=== PATIENT | female | born 1955 | race African-American/Black ===

== ENCOUNTER 2021-06-12 09:11 | Observation (INO) | payer OTHER ==
[2021-06-12 10:10] LABS: BASO % 1.7 % (0-2.0); EOS % 2.4 % (0-4.5); HEMATOCRIT 38.3 % (32.4-45.2); HEMOGLOBIN 12.8 GM/dL (10.7-15.3); MCHC 33.3 g/dl (32.0-36.0); MONO % 13.3 % (3.8-10.2); NEUT % 53.6 % (42.8-82.8); PLATELET COUNT 170 10^3/uL (134-434); RBC 4.41 M/mm3 (3.60-5.2); RDW 12.5 % (11.6-15.6); WHITE BLOOD COUNT 2.6 K/mm3 (4.0-10.0)
[2021-06-12 10:14] VITALS: BMI 40.6
[2021-06-12 10:17] LABS: INR 1.07 (0.83-1.09); PROTHROMBIN TIME (PATIENT) 12.3 SEC (9.7-13.0)
[2021-06-12 10:20] LABS: ACTIVATED PTT 32.9 SECONDS (25.2-36.5)
[2021-06-12 10:42] LABS: ALBUMIN 3.9 g/dl (3.4-5.0); BLOOD UREA NITROGEN 8.7 mg/dL (7-18); CALCIUM 9.7 mg/dL (8.5-10.1); MAGNESIUM 2.2 mg/dL (1.8-2.4)
[2021-06-12 10:45] LABS: CREATININE 0.7 mg/dL (0.55-1.3)
[2021-06-12] MEDS ORDERED: ACETAMINOPHEN 1000 MG/100 ML BAG IVPB ONE (10:45)
[2021-06-12 10:47] LABS: BILIRUBIN,TOTAL 0.6 mg/dL (0.2-1); TOT PROT 7.3 g/dl (6.4-8.2)
[2021-06-12] MEDS ORDERED: ACETAMINOPHEN INJECTION 100 ML IVPB ONE (11:20)
[2021-06-12] MEDS ORDERED: ACETAMINOPHEN 325 MG TABLET (FP) ONE (18:22)
[2021-06-12] MEDS: ACETAMINOPHEN 325 MG TABLET (FP) PO PRN (18:25)
[2021-06-13] MEDS: ACETAMINOPHEN 325 MG TABLET (FP) PO PRN ×2 (05:00→13:14)
[2021-06-13] MEDS ORDERED: ENOXAPARIN NA (PORCINE) 40 MG/0.4 ML DISP.SYRIN SQ SCH (10:00)
[2021-06-13] MEDS: amLODIPine BESYLATE 2.5 MG TABLET (FP) PO SCH (10:10)
[2021-06-13] MEDS: ASPIRIN 81 MG CHEWABLE TABLETS PO SCH (10:10)
[2021-06-13] MEDS: MONTELUKAST NA 10 MG TABLET PO SCH (10:10)
[2021-06-13] MEDS: PANTOPRAZOLE 40 MG TABLET PO SCH (10:10)
[2021-06-13] MEDS ORDERED: ALBUTEROL SO4 HFA INHALER IH PRN (15:44)
[2021-06-13] MEDS: ENOXAPARIN NA (PORCINE) 40 MG/0.4 ML DISP.SYRIN SQ SCH (21:37)
[2021-06-14 07:13] LABS: BASO % 0.8 % (0-2.0); HEMATOCRIT 35.6 % (32.4-45.2); HEMOGLOBIN 11.7 GM/dL (10.7-15.3); MCHC 32.8 g/dl (32.0-36.0); MEAN CELL VOLUME 88.5 fl (80-96); MEAN PLT VOLUME 9.4 fl (7.5-11.1); MONO % 10.8 % (3.8-10.2); NEUT % 31.4 % (42.8-82.8); PLATELET COUNT 178 10^3/uL (134-434); RBC 4.03 M/mm3 (3.60-5.2); RDW 12.3 % (11.6-15.6); WHITE BLOOD COUNT 3.6 K/mm3 (4.0-10.0)
[2021-06-14 07:34] LABS: CALCIUM 8.9 mg/dL (8.5-10.1)
[2021-06-14 07:35] LABS: BLOOD UREA NITROGEN 11.7 mg/dL (7-18)
[2021-06-14 07:38] LABS: CREATININE 0.8 mg/dL (0.55-1.3)
[2021-06-14] MEDS ORDERED: REGADENOSON 0.4 MG/5 ML PRE-FILLED SYRINGE IVPUSH ONE ×2 (10:21→11:15)
[2021-06-14] MEDS: ENOXAPARIN NA (PORCINE) 40 MG/0.4 ML DISP.SYRIN SQ SCH ×2 (10:30→12:33)
[2021-06-14] MEDS: ASPIRIN 81 MG CHEWABLE TABLETS PO SCH ×2 (10:30→12:33)
[2021-06-14] MEDS: PANTOPRAZOLE 40 MG TABLET PO SCH ×2 (10:31→12:34)
[2021-06-14] MEDS: MONTELUKAST NA 10 MG TABLET PO SCH ×2 (10:31→12:34)
[2021-06-14] MEDS: amLODIPine BESYLATE 2.5 MG TABLET (FP) PO SCH ×2 (10:31→12:34)
[2021-06-14 16:08] VITALS: BP 113/73; PULSE 60; TEMP 97.5
== END 2021-06-14 18:02 | disposition home or self-care (01) ==
LOC: JER 09:11 → JERBED 11:14 → J4W 19:43
PROVIDERS: ADMIT Internal Medicine; ATTEND Internal Medicine
PROC: 3E033NZ Introduction of Analgesics, Hypnotics, Sedatives into Peripheral Vein, Percutaneous Approach (ICD-10-PCS; principal; 2021-06-12)
PROC: 3E023GC Introduction of Other Therapeutic Substance into Muscle, Percutaneous Approach (ICD-10-PCS; 2021-06-12)
PROC: 3E033GC Introduction of Other Therapeutic Substance into Peripheral Vein, Percutaneous Approach (ICD-10-PCS; 2021-06-12)
DX: R07.9 Chest pain, unspecified (principal); J45.909 Unspecified asthma, uncomplicated; R01.1 Cardiac murmur, unspecified; R00.1 Bradycardia, unspecified; Z88.0 Allergy status to penicillin; Z88.8 Allergy status to other drugs, medicaments and biological substances
CPT/HCPCS: 36415; 71045-TC-FY; 78452-TC; 80048; 80053; 80061; 83735; 84443; 84484; 85025; 85610; 85730; 93005; 93010; 93017; 96372; 96374; 96375; 99285-25; A9502; C9803-CS; G0378; J2785; U0003; U0005

== ENCOUNTER 2021-10-16 20:11 | Emergency (ER) | payer OTHER ==
[2021-10-16 20:32] VITALS: BMI 44.1
[2021-10-16] MEDS ORDERED: ACETAMINOPHEN 325 MG TABLET (FP) PO ONE (20:57)
[2021-10-16] MEDS ORDERED: ACETAMINOPHEN 325 MG TABLET (FP) ONE (21:13)
[2021-10-16 21:36] LABS: HEMATOCRIT 37.8 % (32.4-45.2); HEMOGLOBIN 12.3 GM/dL (10.7-15.3); MCH 28.3 pg (25.7-33.7); MCHC 32.5 g/dl (32.0-36.0); MEAN CELL VOLUME 87.1 fl (80-96); MEAN PLT VOLUME 9.7 fl (7.5-11.1); PLATELET COUNT 222 10^3/uL (134-434); RBC 4.35 M/mm3 (3.60-5.2); RDW 12.7 % (11.6-15.6); WHITE BLOOD COUNT 5.1 K/mm3 (4.0-10.0)
[2021-10-16 21:59] LABS: BLOOD UREA NITROGEN 12.8 mg/dL (7-18); CALCIUM 9.4 mg/dL (8.5-10.1); MAGNESIUM 2.2 mg/dL (1.8-2.4)
[2021-10-16 22:00] LABS: ALBUMIN 3.7 g/dl (3.4-5.0)
[2021-10-16 22:03] LABS: CREATININE 0.7 mg/dL (0.55-1.3)
[2021-10-16 22:04] LABS: BILIRUBIN,TOTAL 0.5 mg/dL (0.2-1); TOT PROT 7.5 g/dl (6.4-8.2)
[2021-10-16] MEDS ORDERED: ALBUTEROL SO4 HFA INHALER IH ONE ×2 (23:09→23:13)
[2021-10-16] MEDS ORDERED: KETOROLAC TROMETHAMINE 15 MG/ML VIAL IVPUSH ONE (23:09)
[2021-10-16] MEDS ORDERED: KETOROLAC TROMETHAMINE 30 MG/1 ML VIAL ONE (23:13)
[2021-10-16] MEDS ORDERED: SODIUM CHLORIDE 0.9% 500 ML INFUS.BAG IV ONE (23:38)
[2021-10-17 01:46] VITALS: BP 118/76; PULSE 76; RESP 18; TEMP 98.1
== END 2021-10-17 01:47 | disposition home or self-care (01) ==
LOC: JER 20:11
PROC: 3E033GC Introduction of Other Therapeutic Substance into Peripheral Vein, Percutaneous Approach (ICD-10-PCS; principal; 2021-10-16)
PROC: 3E0F7GC Introduction of Other Therapeutic Substance into Respiratory Tract, Via Natural or Artificial Opening (ICD-10-PCS; 2021-10-16)
DX: U07.1 COVID-19 (principal); R07.9 Chest pain, unspecified
CPT/HCPCS: 36415; 71046-TC-FY; 80053; 83735; 84484; 85027; 93005; 93010; 94640; 96374; 99285-25; C9803-CS; U0003; U0005

== ENCOUNTER 2022-06-14 16:13 | Emergency (ER) | payer OTHER ==
[2022-06-14 16:22] VITALS: RESP 18; TEMP 98.2; BMI 42.9
[2022-06-14] MEDS ORDERED: methylPREDNISolone NA SUCC 125 MG/2 ML VIAL IVPB ONE (16:53)
[2022-06-14] MEDS ORDERED: MAGNESIUM SULF 50% (8.12 MEQ/2 ML-1 GM VIAL) IVPB ONE (16:53)
[2022-06-14] MEDS ORDERED: ALBUTEROL SO4 2.5/IPRATROPIUM 0.5 INH SOL 3 ML VIAL.NEB. NEB ONE ×3 (16:53→18:40)
[2022-06-14] MEDS ORDERED: ACETAMINOPHEN 1000 MG/100 ML BAG IVPB ONE (16:56)
[2022-06-14] MEDS ORDERED: ACETAMINOPHEN INJECTION 100 ML IVPB ONE (17:00)
[2022-06-14] MEDS ORDERED: methylPREDNISolone NA SUCC 125 MG/2 ML VIAL ONE (17:00)
[2022-06-14] MEDS ORDERED: MAGNESIUM SULFATE IN WATER 2 GM/50 ML IVPB IVPB ONE (17:01)
[2022-06-14 17:56] LABS: BASO % 0.8 % (0-2.0); EOS % 1.4 % (0-4.5); HEMATOCRIT 40.2 % (32.4-45.2); HEMOGLOBIN 13.3 GM/dL (10.7-15.3); MCH 28.6 pg (25.7-33.7); MCHC 33.1 g/dl (32.0-36.0); MEAN CELL VOLUME 86.5 fl (80-96); MEAN PLT VOLUME 10.1 fl (7.5-11.1); MONO % 12.6 % (3.8-10.2); NEUT % 49.2 % (42.8-82.8); PLATELET COUNT 212 10^3/uL (134-434); RBC 4.64 M/mm3 (3.60-5.2); WHITE BLOOD COUNT 4.7 K/mm3 (4.0-10.0)
[2022-06-14 18:26] LABS: BLOOD UREA NITROGEN 17.2 mg/dL (7-18); MAGNESIUM 2.2 mg/dL (1.8-2.4)
[2022-06-14 18:29] LABS: CREATININE 0.9 mg/dL (0.55-1.3); PHOSPHOROUS 4.2 mg/dL (2.5-4.9)
[2022-06-14 18:30] LABS: BILIRUBIN,TOTAL 0.8 mg/dL (0.2-1); TOT PROT 7.9 g/dl (6.4-8.2)
[2022-06-14 18:32] VITALS: BP 104/65; PULSE 76
== END 2022-06-14 20:28 | disposition home or self-care (01) ==
LOC: JER 16:13
PROC: 3E033GC Introduction of Other Therapeutic Substance into Peripheral Vein, Percutaneous Approach (ICD-10-PCS; principal; 2022-06-14)
PROC: 3E0F7GC Introduction of Other Therapeutic Substance into Respiratory Tract, Via Natural or Artificial Opening (ICD-10-PCS; 2022-06-14)
DX: J45.909 Unspecified asthma, uncomplicated (principal)
CPT/HCPCS: 0241U-QW; 36415; 71045-TC-FY; 80053; 83735; 84100; 84484; 85025; 93005; 93010; 94640; 96374; 96375; 99285-25

== ENCOUNTER 2022-08-20 11:50 | Observation (INO) | payer OTHER ==
[2022-08-20] MEDS ORDERED: methylPREDNISolone NA SUCC 125 MG/2 ML VIAL IVPUSH ONE (12:10)
[2022-08-20] MEDS ORDERED: ALBUTEROL SO4 2.5/IPRATROPIUM 0.5 INH SOL 3 ML VIAL.NEB. NEB ONE (12:23)
[2022-08-20] MEDS ORDERED: methylPREDNISolone NA SUCC 125 MG/2 ML VIAL ONE (12:23)
[2022-08-20] MEDS: ALBUTEROL SO4 2.5/IPRATROPIUM 0.5 INH SOL 3 ML VIAL.NEB. NEB SCH ×5 (12:31→21:33)
[2022-08-20 12:49] LABS: BASO % 0.6 % (0-2.0); EOS % 4.2 % (0-4.5); HEMATOCRIT 37.7 % (32.4-45.2); HEMOGLOBIN 12.4 GM/dL (10.7-15.3); LYMPH % 37.2 % (8-40); MCH 28.7 pg (25.7-33.7); MCHC 32.9 g/dl (32.0-36.0); MEAN CELL VOLUME 87.2 fl (80-96); MEAN PLT VOLUME 8.8 fl (7.5-11.1); MONO % 12.9 % (3.8-10.2); NEUT % 45.1 % (42.8-82.8); PLATELET COUNT 186 10^3/uL (134-434); RBC 4.33 M/mm3 (3.60-5.2); RDW 12.6 % (11.6-15.6); WHITE BLOOD COUNT 2.8 K/mm3 (4.0-10.0)
[2022-08-20 13:06] LABS: POTASSIUM 4.3 mmol/L (3.5-5.1)
[2022-08-20 13:08] LABS: CALCIUM 9.3 mg/dL (8.5-10.1)
[2022-08-20 13:09] LABS: ALBUMIN 3.5 g/dl (3.4-5.0); BLOOD UREA NITROGEN 11.2 mg/dL (7-18)
[2022-08-20] MEDS ORDERED: MAGNESIUM SULF 50% (8.12 MEQ/2 ML-1 GM VIAL) IVPB ONE (13:10)
[2022-08-20 13:12] LABS: CREATININE 0.8 mg/dL (0.55-1.3)
[2022-08-20] MEDS ORDERED: MAGNESIUM SULFATE IN WATER 2 GM/50 ML IVPB IVPB ONE (13:12)
[2022-08-20 13:14] LABS: BILIRUBIN,TOTAL 0.6 mg/dL (0.2-1); TOT PROT 6.6 g/dl (6.4-8.2)
[2022-08-20] MEDS ORDERED: ACETAMINOPHEN 1000 MG/100 ML BAG IVPB ONE (15:35)
[2022-08-20] MEDS ORDERED: ACETAMINOPHEN INJECTION 100 ML IVPB ONE (15:36)
[2022-08-20] MEDS ORDERED: ACETAMINOPHEN 325 MG TABLET (FP) PO PRN (15:51)
[2022-08-20] MEDS ORDERED: ALBUTEROL SO4 2.5/IPRATROPIUM 0.5 INH SOL 3 ML VIAL.NEB. NEB PRN (15:51)
[2022-08-20 16:56] VITALS: BMI 42.3
[2022-08-20] MEDS: methylPREDNISolone NA SUCC 40 MG/1 ML VIAL IVPUSH SCH (17:42)
[2022-08-20] MEDS: IBUPROFEN 800 MG/8 ML IJ IVPB PRN (18:01)
[2022-08-20] MEDS: MONTELUKAST NA 10 MG TABLET PO SCH (21:41)
[2022-08-21] MEDS ORDERED: BENZOCAINE/MENTH/CETYLPYRD CL 1 EACH LOZENGE MM PRN (00:47)
[2022-08-21] MEDS ORDERED: guaiFENesin 200 MG/10 ML 10 ML UNIT-DOSE CUPS PO ONE (00:47)
[2022-08-21] MEDS ORDERED: ACETYLCYSTEINE 20% 200MG/ML 30 ML VIAL *FOR ORAL / INH USE ONLY NEB ONE (00:48)
[2022-08-21] MEDS: methylPREDNISolone NA SUCC 40 MG/1 ML VIAL IVPUSH SCH ×3 (01:07→18:37)
[2022-08-21] MEDS: IBUPROFEN 800 MG/8 ML IJ IVPB PRN (06:32)
[2022-08-21] MEDS: ALBUTEROL SO4 2.5/IPRATROPIUM 0.5 INH SOL 3 ML VIAL.NEB. NEB SCH ×4 (07:40→20:32)
[2022-08-21] MEDS: amLODIPine BESYLATE 5 MG TABLET (FP) PO SCH (10:29)
[2022-08-21] MEDS: PANTOPRAZOLE 40 MG TABLET PO SCH (10:29)
[2022-08-21] MEDS: ENOXAPARIN NA (PORCINE) 40 MG/0.4 ML DISP.SYRIN SQ SCH (10:30)
[2022-08-21 15:04] VITALS: RESP 18
[2022-08-21] MEDS: MONTELUKAST NA 10 MG TABLET PO SCH (21:22)
[2022-08-22] MEDS: methylPREDNISolone NA SUCC 40 MG/1 ML VIAL IVPUSH SCH ×2 (01:38→10:29)
[2022-08-22] MEDS: ALBUTEROL SO4 2.5/IPRATROPIUM 0.5 INH SOL 3 ML VIAL.NEB. NEB SCH ×3 (08:35→16:31)
[2022-08-22] MEDS: ENOXAPARIN NA (PORCINE) 40 MG/0.4 ML DISP.SYRIN SQ SCH (10:29)
[2022-08-22] MEDS: amLODIPine BESYLATE 5 MG TABLET (FP) PO SCH (10:29)
[2022-08-22] MEDS: PANTOPRAZOLE 40 MG TABLET PO SCH (10:29)
[2022-08-22 12:59] VITALS: BP 147/72; PULSE 72; TEMP 98.7
[2022-08-22] MEDS ORDERED: TIOTROPIUM BROMIDE 2.5 MCG (SPIRIVA) RESPIMAT INHALER IH SCH (14:00)
[2022-08-22] MEDS ORDERED: BUDESONIDE/FORMETEROL FUMARATE 160/4.5 mcg INHALER IH SCH (14:00)
== END 2022-08-22 16:21 | disposition home or self-care (01) ==
LOC: JER 11:50 → JERBED 14:38 → J5S 16:04
PROVIDERS: ADMIT Internal Medicine; ATTEND Student in an Organized Health Care Education/Training Program
PROC: 3E0333Z Introduction of Anti-inflammatory into Peripheral Vein, Percutaneous Approach (ICD-10-PCS; principal; 2022-08-20)
PROC: 3E033NZ Introduction of Analgesics, Hypnotics, Sedatives into Peripheral Vein, Percutaneous Approach (ICD-10-PCS; 2022-08-20)
PROC: 3E033GC Introduction of Other Therapeutic Substance into Peripheral Vein, Percutaneous Approach (ICD-10-PCS; 2022-08-20)
PROC: 3E013GC Introduction of Other Therapeutic Substance into Subcutaneous Tissue, Percutaneous Approach (ICD-10-PCS; 2022-08-20)
PROC: 3E0F7SF Introduction of Other Gas into Respiratory Tract, Via Natural or Artificial Opening (ICD-10-PCS; 2022-08-20)
DX: J45.901 Unspecified asthma with (acute) exacerbation (principal); I10 Essential (primary) hypertension; R07.89 Other chest pain; Z88.0 Allergy status to penicillin; Z88.1 Allergy status to other antibiotic agents; E78.5 Hyperlipidemia, unspecified; F41.0 Panic disorder [episodic paroxysmal anxiety]; E66.9 Obesity, unspecified; Z68.41 Body mass index [BMI] 40.0-44.9, adult; R06.83 Snoring
CPT/HCPCS: 0241U-QW; 36415; 71045-TC-FY; 71275-TC; 80053; 83735; 84484; 85025; 93005; 93010; 93306-TC; 94640; 96372; 96374; 96375; 96376; 99291; G0378

== ENCOUNTER 2023-04-20 14:42 | Observation (INO) | payer OTHER ==
[2023-04-20] MEDS ORDERED: ALBUTEROL SO4 2.5/IPRATROPIUM 0.5 INH SOL 3 ML VIAL.NEB. NEB ONE ×2 (16:16→21:13)
[2023-04-20] MEDS ORDERED: methylPREDNISolone NA SUCC 125 MG/2 ML VIAL ONE ×2 (16:17→21:23)
[2023-04-20] MEDS: methylPREDNISolone NA SUCC 125 MG/2 ML VIAL IM ONE (16:23)
[2023-04-20] MEDS: ALBUTEROL SO4 2.5/IPRATROPIUM 0.5 INH SOL 3 ML VIAL.NEB. NEB ONE (16:23)
[2023-04-20 16:24] LABS: BASO % 0.6 % (0-2.0); EOS % 2.8 % (0-4.5); HEMATOCRIT 39.4 % (32.4-45.2); HEMOGLOBIN 12.9 GM/dL (10.7-15.3); LYMPH % 39.4 % (8-40); MCH 29.2 pg (25.7-33.7); MCHC 32.7 g/dl (32.0-36.0); MEAN CELL VOLUME 89.2 fl (80-96); MEAN PLT VOLUME 9.3 fl (7.5-11.1); MONO % 10.6 % (3.8-10.2); NEUT % 46.6 % (42.8-82.8); PLATELET COUNT 196 10^3/uL (134-434); RBC 4.41 M/mm3 (3.60-5.2); RDW 12.5 % (11.6-15.6); WHITE BLOOD COUNT 4.7 K/mm3 (4.0-10.0)
[2023-04-20 16:40] LABS: POTASSIUM 4.1 mmol/L (3.5-5.1)
[2023-04-20 16:42] LABS: ALBUMIN 3.7 g/dl (3.4-5.0); BLOOD UREA NITROGEN 7.2 mg/dL (7-18); CALCIUM 9.5 mg/dL (8.5-10.1)
[2023-04-20 16:46] LABS: CREATININE 0.6 mg/dL (0.55-1.3)
[2023-04-20 16:47] LABS: BILIRUBIN,TOTAL 0.8 mg/dL (0.2-1); TOT PROT 6.7 g/dl (6.4-8.2)
[2023-04-20] MEDS: methylPREDNISolone NA SUCC 40 MG/1 ML VIAL IVPUSH SCH (21:31)
[2023-04-20 22:31] VITALS: BMI 37.5
[2023-04-21] MEDS: ALBUTEROL SO4 2.5/IPRATROPIUM 0.5 INH SOL 3 ML VIAL.NEB. NEB SCH (00:50)
[2023-04-21] MEDS: ACETAMINOPHEN 1000 MG/100 ML BAG IVPB ONE (02:08)
[2023-04-21] MEDS ORDERED: ALBUTEROL SO4 2.5/IPRATROPIUM 0.5 INH SOL 3 ML VIAL.NEB. NEB PRN (07:08)
[2023-04-21] MEDS ORDERED: ALBUTEROL SO4 2.5/IPRATROPIUM 0.5 INH SOL 3 ML VIAL.NEB. NEB SCH (08:00)
[2023-04-21 08:18] LABS: HEMOGLOBIN 14.1 GM/dL (10.7-15.3); MCH 29.4 pg (25.7-33.7); MCHC 33.6 g/dl (32.0-36.0); MEAN CELL VOLUME 87.5 fl (80-96); MEAN PLT VOLUME 9.6 fl (7.5-11.1); PLATELET COUNT 216 10^3/uL (134-434); RDW 12.7 % (11.6-15.6); WHITE BLOOD COUNT 7.4 K/mm3 (4.0-10.0)
[2023-04-21 08:37] VITALS: RESP 18
[2023-04-21 08:38] LABS: BLOOD UREA NITROGEN 10.9 mg/dL (7-18); CALCIUM 9.8 mg/dL (8.5-10.1); MAGNESIUM 2.4 mg/dL (1.8-2.4)
[2023-04-21 08:42] LABS: PHOSPHOROUS 3.6 mg/dL (2.5-4.9)
[2023-04-21 08:43] LABS: TOT PROT 7.7 g/dl (6.4-8.2)
[2023-04-21 08:44] LABS: BILIRUBIN,TOTAL 0.7 mg/dL (0.2-1)
[2023-04-21] MEDS: amLODIPine BESYLATE 5 MG TABLET (FP) PO SCH (10:55)
[2023-04-21] MEDS: FUROSEMIDE 40 MG/4 ML INJECTABLE VIAL IVPUSH ONE (10:58)
[2023-04-21] MEDS: HEPARIN NA (PORCINE) 5,000 UNITS/ML 1ML VIAL SQ SCH (14:53)
[2023-04-21] MEDS: ACETAMINOPHEN 325 MG TABLET (FP) PO PRN (18:30)
[2023-04-21] MEDS: MONTELUKAST NA 10 MG TABLET PO SCH (22:21)
[2023-04-22 07:34] LABS: HEMATOCRIT 40.7 % (32.4-45.2); HEMOGLOBIN 13.2 GM/dL (10.7-15.3); MCH 28.5 pg (25.7-33.7); MCHC 32.4 g/dl (32.0-36.0); MEAN PLT VOLUME 9.6 fl (7.5-11.1); PLATELET COUNT 194 10^3/uL (134-434); RBC 4.62 M/mm3 (3.60-5.2); RDW 12.5 % (11.6-15.6); WHITE BLOOD COUNT 14.7 K/mm3 (4.0-10.0)
[2023-04-22 07:43] LABS: POTASSIUM 4.3 mmol/L (3.5-5.1)
[2023-04-22 07:45] LABS: ALBUMIN 3.6 g/dl (3.4-5.0); BLOOD UREA NITROGEN 14.6 mg/dL (7-18); CALCIUM 9.6 mg/dL (8.5-10.1); MAGNESIUM 2.4 mg/dL (1.8-2.4)
[2023-04-22 07:47] LABS: CREATININE 0.8 mg/dL (0.55-1.3)
[2023-04-22 07:50] LABS: BILIRUBIN,TOTAL 0.6 mg/dL (0.2-1); TOT PROT 6.9 g/dl (6.4-8.2)
[2023-04-22 09:09] LABS: ANISOCYTOSIS 0; HELMET CELLS 0; HOWELL-JOLLY BODIES 0; MACROCYTOSIS 0; OVALOCYTE 0; ROULEAU 0; SICKELED CELLS 0; TARGET CELLS 0; TEAR DROP CELLS 0; TOXIC GRANULATION 0
[2023-04-22] MEDS ORDERED: methylPREDNISolone NA SUCC 40 MG/1 ML VIAL IVPUSH SCH (10:00)
[2023-04-22] MEDS ORDERED: predniSONE 20 MG TABLET (UD) PO SCH (10:00)
[2023-04-22] MEDS: predniSONE 20 MG TABLET (UD) PO SCH (10:21)
[2023-04-22 13:13] LABS: EPI CELLS >36 /uL (0-25.1); HYALINE CASTS 0 /uL (0-3.1); URINE APPEARANCE CLEAR; URINE BACTERIA 827 /uL (0-1359); URINE BILIRUBIN NEGATIVE (NEGATIVE); URINE COLOR YELLOW; URINE GLUCOSE (UA) NEGATIVE (NEGATIVE); URINE KETONE NEGATIVE (NEGATIVE); URINE LEUK ESTERASE 1+ (NEGATIVE); URINE NITRITE NEGATIVE (NEGATIVE); URINE PROTEIN NEGATIVE (NEGATIVE); URINE RBC 11 /uL (0-23.9); URINE UROBILINOGEN 0.2 mg/dL (0.2-1.0); URINE WBC 55 /uL (0-25.8)
[2023-04-22 14:48] VITALS: BP 119/70; PULSE 61; TEMP 98.6
== END 2023-04-22 14:51 | disposition home or self-care (01) ==
LOC: JER 14:42 → JERBED 19:44 → J7W 21:37
PROVIDERS: ADMIT Internal Medicine; ATTEND Nurse Practitioner Acute Care
PROC: 3E033NZ Introduction of Analgesics, Hypnotics, Sedatives into Peripheral Vein, Percutaneous Approach (ICD-10-PCS; principal; 2023-04-20)
PROC: 3E0F7GC Introduction of Other Therapeutic Substance into Respiratory Tract, Via Natural or Artificial Opening (ICD-10-PCS; 2023-04-20)
PROC: 3E033GC Introduction of Other Therapeutic Substance into Peripheral Vein, Percutaneous Approach (ICD-10-PCS; 2023-04-20)
DX: J45.901 Unspecified asthma with (acute) exacerbation (principal); I10 Essential (primary) hypertension; H40.9 Unspecified glaucoma; R00.1 Bradycardia, unspecified; R05.9 Cough, unspecified; R60.0 Localized edema; M19.90 Unspecified osteoarthritis, unspecified site; Z29.89 Encounter for other specified prophylactic measures; D72.829 Elevated white blood cell count, unspecified; R09.89 Other specified symptoms and signs involving the circulatory and respiratory systems; Z88.8 Allergy status to other drugs, medicaments and biological substances; Z88.0 Allergy status to penicillin
CPT/HCPCS: 36415; 71045-TC-FY; 80053; 81003; 82550; 83735; 84100; 84443; 84484; 85025; 85027; 87086; 93005; 93010; 93306-TC; 94640; 96372; 96374; 96375; 99285-25; G0378; J0131; J1644

== ENCOUNTER 2023-09-20 12:17 | Observation (INO) | payer OTHER ==
[2023-09-20] MEDS ORDERED: ALBUTEROL SO4 2.5/IPRATROPIUM 0.5 INH SOL 3 ML VIAL.NEB. NEB ONE ×3 (13:10→19:10)
[2023-09-20] MEDS: ALBUTEROL SO4 2.5/IPRATROPIUM 0.5 INH SOL 3 ML VIAL.NEB. NEB ONE (14:22)
[2023-09-20 14:28] LABS: BASO % 0.8 % (0-2.0); EOS % 2.7 % (0-4.5); HEMATOCRIT 35.3 % (32.4-45.2); HEMOGLOBIN 11.6 GM/dL (10.7-15.3); LYMPH % 29.3 % (8-40); MCH 28.8 pg (25.7-33.7); MCHC 32.9 g/dl (32.0-36.0); MEAN CELL VOLUME 87.5 fl (80-96); MEAN PLT VOLUME 8.8 fl (7.5-11.1); NEUT % 54.2 % (42.8-82.8); PLATELET COUNT 192 10^3/uL (134-434); RBC 4.03 M/mm3 (3.60-5.2); RDW 12.8 % (11.6-15.6); WHITE BLOOD COUNT 3.6 K/mm3 (4.0-10.0)
[2023-09-20 14:36] LABS: PROTHROMBIN TIME (PATIENT) 11.5 SEC (9.7-13.0)
[2023-09-20 14:39] LABS: ACTIVATED PTT 29.6 SECONDS (25.2-36.5)
[2023-09-20 14:50] LABS: POTASSIUM 4.4 mmol/L (3.5-5.1)
[2023-09-20 14:53] LABS: CALCIUM 8.9 mg/dL (8.5-10.1)
[2023-09-20 14:54] LABS: ALBUMIN 3.3 g/dl (3.4-5.0); BLOOD UREA NITROGEN 8.6 mg/dL (7-18)
[2023-09-20 14:57] LABS: CREATININE 0.7 mg/dL (0.55-1.3)
[2023-09-20 14:59] LABS: BILIRUBIN,TOTAL 0.4 mg/dL (0.2-1)
[2023-09-20 15:02] LABS: N-TERMINAL BNP 152.6 pg/ml (5-125)
[2023-09-20] MEDS ORDERED: ASPIRIN 81 MG CHEWABLE TABLETS ONE (15:37)
[2023-09-20] MEDS: ASPIRIN 81 MG CHEWABLE TABLETS PO ONE (15:47)
[2023-09-20] MEDS ORDERED: methylPREDNISolone NA SUCC 125 MG/2 ML VIAL ONE (16:19)
[2023-09-20] MEDS ORDERED: ACETAMINOPHEN INJECTION 100 ML IVPB ONE (16:19)
[2023-09-20] MEDS: ACETAMINOPHEN 1000 MG/100 ML BAG IVPB ONE (16:27)
[2023-09-20] MEDS: methylPREDNISolone NA SUCC 125 MG/2 ML VIAL IVPB ONE (16:27)
[2023-09-20] MEDS ORDERED: guaiFENesin/D-METHORPHAN HB 10 ML UNIT-DOSE CUPS ONE (17:19)
[2023-09-20] MEDS ORDERED: IBUPROFEN 400 MG TABLET (FP) PO ONE (17:19)
[2023-09-20] MEDS: guaiFENesin 200 MG/10 ML 10 ML UNIT-DOSE CUPS PO SCH (17:23)
[2023-09-20] MEDS: IBUPROFEN 200 MG TABLET PO SCH (17:23)
[2023-09-20] MEDS: ALBUTEROL SO4 2.5/IPRATROPIUM 0.5 INH SOL 3 ML VIAL.NEB. NEB SCH (19:17)
[2023-09-20] MEDS: HEPARIN NA (PORCINE) 5,000 UNITS/ML 1ML VIAL SQ SCH (22:03)
[2023-09-20] MEDS: LATANOPROST 0.005% OPHTH SOLN 2.5ML BOTTLE OU SCH (22:50)
[2023-09-21 01:36] VITALS: BMI 43.7
[2023-09-21 08:04] LABS: BASO % 0.1 % (0-2.0); HEMATOCRIT 37.4 % (32.4-45.2); HEMOGLOBIN 12.2 GM/dL (10.7-15.3); LYMPH % 7.8 % (8-40); MCH 28.9 pg (25.7-33.7); MCHC 32.7 g/dl (32.0-36.0); MEAN CELL VOLUME 88.3 fl (80-96); MONO % 2.5 % (3.8-10.2); NEUT % 89.6 % (42.8-82.8); PLATELET COUNT 181 10^3/uL (134-434); RBC 4.24 M/mm3 (3.60-5.2); RDW 12.9 % (11.6-15.6); WHITE BLOOD COUNT 5.3 K/mm3 (4.0-10.0)
[2023-09-21 08:13] LABS: POTASSIUM 4.8 mmol/L (3.5-5.1)
[2023-09-21 08:14] LABS: CALCIUM 9.6 mg/dL (8.5-10.1)
[2023-09-21 08:15] LABS: BLOOD UREA NITROGEN 10.2 mg/dL (7-18)
[2023-09-21 08:18] LABS: CREATININE 0.7 mg/dL (0.55-1.3)
[2023-09-21 09:45] VITALS: BP 140/69; PULSE 70; RESP 16; TEMP 97.9
[2023-09-21] MEDS: amLODIPine BESYLATE 5 MG TABLET (FP) PO SCH (09:54)
[2023-09-21] MEDS: predniSONE 20 MG TABLET (UD) PO SCH (09:54)
[2023-09-21] MEDS: MONTELUKAST NA 10 MG TABLET PO SCH (09:54)
[2023-09-21] MEDS: AZITHROMYCIN 250 MG TABLET PO ONE (09:55)
[2023-09-21] MEDS ORDERED: LATANOPROST 0.005% OPHTH SOLN 2.5ML BOTTLE OU SCH (10:00)
[2023-09-21] MEDS: methylPREDNISolone NA SUCC 40 MG/1 ML VIAL IVPUSH SCH (12:58)
[2023-09-22] MEDS ORDERED: AZITHROMYCIN 250 MG TABLET PO SCH (10:00)
[2023-09-22] MEDS ORDERED: predniSONE 20 MG TABLET (UD) PO SCH (10:00)
== END 2023-09-21 14:32 | disposition home or self-care (01) ==
LOC: JER 12:17 → JERBED 16:10 → J4S 19:42
PROVIDERS: ADMIT Internal Medicine; ATTEND Internal Medicine
PROC: 3E033NZ Introduction of Analgesics, Hypnotics, Sedatives into Peripheral Vein, Percutaneous Approach (ICD-10-PCS; principal; 2023-09-20)
PROC: 3E0F7GC Introduction of Other Therapeutic Substance into Respiratory Tract, Via Natural or Artificial Opening (ICD-10-PCS; 2023-09-20)
PROC: 3E023GC Introduction of Other Therapeutic Substance into Muscle, Percutaneous Approach (ICD-10-PCS; 2023-09-20)
PROC: 3E033GC Introduction of Other Therapeutic Substance into Peripheral Vein, Percutaneous Approach (ICD-10-PCS; 2023-09-20)
DX: J45.901 Unspecified asthma with (acute) exacerbation (principal); I10 Essential (primary) hypertension; R00.1 Bradycardia, unspecified; H40.9 Unspecified glaucoma; M19.90 Unspecified osteoarthritis, unspecified site; E66.01 Morbid (severe) obesity due to excess calories; M48.061 Spinal stenosis, lumbar region without neurogenic claudication; Z88.8 Allergy status to other drugs, medicaments and biological substances; Z88.0 Allergy status to penicillin
CPT/HCPCS: 0241U-QW; 36415; 71045-TC-FY; 80048; 80053; 83880; 84484; 85025; 85610; 85730; 93005; 93010; 94640; 96372; 96374; 96375; 99285-25; G0378; J0131; J1644

== ENCOUNTER 2023-11-13 11:37 | Emergency (ER) | payer OTHER ==
[2023-11-13 11:49] VITALS: BP 130/75; PULSE 60; RESP 18; TEMP 98.7; BMI 43.2
[2023-11-13 13:28] LABS: BASO % 0.9 % (0-2.0); EOS % 2.3 % (0-4.5); HEMATOCRIT 41.3 % (32.4-45.2); HEMOGLOBIN 13.7 GM/dL (10.7-15.3); LYMPH % 40.8 % (8-40); MCH 28.6 pg (25.7-33.7); MCHC 33.1 g/dl (32.0-36.0); MEAN CELL VOLUME 86.5 fl (80-96); MEAN PLT VOLUME 8.9 fl (7.5-11.1); MONO % 12.7 % (3.8-10.2); NEUT % 43.3 % (42.8-82.8); PLATELET COUNT 213 10^3/uL (134-434); RBC 4.77 M/mm3 (3.60-5.2); RDW 12.9 % (11.6-15.6)
[2023-11-13] MEDS ORDERED: ACETAMINOPHEN INJECTION 100 ML ONE (13:31)
[2023-11-13] MEDS: ACETAMINOPHEN 1000 MG/100 ML BAG IVPB ONE (13:37)
[2023-11-13 13:50] LABS: BLOOD UREA NITROGEN 7.2 mg/dL (7-18); CALCIUM 9.8 mg/dL (8.5-10.1)
[2023-11-13 13:54] LABS: CREATININE 0.7 mg/dL (0.55-1.3)
[2023-11-13 13:55] LABS: BILIRUBIN,TOTAL 1.1 mg/dL (0.2-1); TOT PROT 7.2 g/dl (6.4-8.2)
[2023-11-13 13:58] LABS: N-TERMINAL BNP 49.6 pg/ml (5-125)
== END 2023-11-13 14:34 | disposition home or self-care (01) ==
LOC: JER 11:37
PROC: 3E033NZ Introduction of Analgesics, Hypnotics, Sedatives into Peripheral Vein, Percutaneous Approach (ICD-10-PCS; principal; 2023-11-13)
DX: R07.9 Chest pain, unspecified (principal); R06.02 Shortness of breath; R42 Dizziness and giddiness; R05.9 Cough, unspecified
CPT/HCPCS: 36415; 71045-TC-FY; 80053; 83880; 84484; 85025; 87633; 93005; 93010; 96374; 99285-25; J0131

== ENCOUNTER 2023-12-26 15:46 | Inpatient (IN) | payer OTHER ==
[2023-12-26 16:03] VITALS: BMI 44.1
[2023-12-26] MEDS ORDERED: ALBUTEROL SO4 2.5/IPRATROPIUM 0.5 INH SOL 3 ML VIAL.NEB. NEB ONE (18:45)
[2023-12-26] MEDS: ALBUTEROL SO4 0.083% IH SOL 2.5 MG/3 ML VIAL.NEB. NEB SCH (18:45)
[2023-12-26] MEDS ORDERED: predniSONE 20 MG TABLET (UD) ONE (18:46)
[2023-12-26] MEDS: ALBUTEROL SO4 2.5/IPRATROPIUM 0.5 INH SOL 3 ML VIAL.NEB. NEB ONE (18:54)
[2023-12-26] MEDS: predniSONE 20 MG TABLET (UD) PO ONE (18:54)
[2023-12-26 19:18] LABS: BASO % 0.5 % (0-2.0); EOS % 1.7 % (0-4.5); HEMATOCRIT 36.9 % (32.4-45.2); HEMOGLOBIN 12.3 GM/dL (10.7-15.3); LYMPH % 37.4 % (8-40); MCH 28.7 pg (25.7-33.7); MCHC 33.2 g/dl (32.0-36.0); MEAN CELL VOLUME 86.3 fl (80-96); MEAN PLT VOLUME 9.7 fl (7.5-11.1); NEUT % 49.4 % (42.8-82.8); PLATELET COUNT 187 10^3/uL (134-434); RBC 4.28 M/mm3 (3.60-5.2); RDW 12.7 % (11.6-15.6); WHITE BLOOD COUNT 4.8 K/mm3 (4.0-10.0)
[2023-12-26 19:24] LABS: POTASSIUM 4.3 mmol/L (3.5-5.1)
[2023-12-26 19:26] LABS: CALCIUM 9.6 mg/dL (8.5-10.1)
[2023-12-26 19:27] LABS: ALBUMIN 3.6 g/dl (3.4-5.0); BLOOD UREA NITROGEN 19.5 mg/dL (7-18)
[2023-12-26 19:30] LABS: CREATININE 0.7 mg/dL (0.55-1.3)
[2023-12-26 19:32] LABS: BILIRUBIN,TOTAL 0.6 mg/dL (0.2-1); TOT PROT 6.3 g/dl (6.4-8.2)
[2023-12-26] MEDS: MAGNESIUM SULFATE IN WATER 2 GM/50 ML IVPB IVPB ONE (20:12)
[2023-12-26] MEDS ORDERED: MAGNESIUM SULFATE IN WATER 2 GM/50 ML IVPB IVPB ONE (20:13)
[2023-12-26 21:13] LABS: VENOUS O2 SATURATION 70.5 % (70-80); VENOUS PCO2 40.5 mmHg (38-52); VENOUS PH 7.404 (7.310-7.410)
[2023-12-26] MEDS: BUDESONIDE/FORMETEROL FUMARATE 160/4.5 mcg INHALER IH SCH (23:15)
[2023-12-27] MEDS: BUDESONIDE/FORMETEROL FUMARATE 160/4.5 mcg INHALER IH ONE (01:30)
[2023-12-27] MEDS: methylPREDNISolone NA SUCC 40 MG/1 ML VIAL IVPUSH SCH (04:21)
[2023-12-27] MEDS: ENOXAPARIN NA (PORCINE) 40 MG/0.4 ML DISP.SYRIN SQ SCH (04:21)
[2023-12-27] MEDS: ALBUTEROL SO4 2.5/IPRATROPIUM 0.5 INH SOL 3 ML VIAL.NEB. NEB PRN (05:38)
[2023-12-27] MEDS: ALBUTEROL SO4 2.5/IPRATROPIUM 0.5 INH SOL 3 ML VIAL.NEB. NEB SCH ×2 (07:45→16:10)
[2023-12-27 10:19] LABS: HEMATOCRIT 39.5 % (32.4-45.2); HEMOGLOBIN 12.6 GM/dL (10.7-15.3); MCH 28.2 pg (25.7-33.7); MEAN PLT VOLUME 10.2 fl (7.5-11.1); PLATELET COUNT 179 10^3/uL (134-434); RBC 4.49 M/mm3 (3.60-5.2); RDW 12.6 % (11.6-15.6); WHITE BLOOD COUNT 5.7 K/mm3 (4.0-10.0)
[2023-12-27 10:44] LABS: POTASSIUM 4.3 mmol/L (3.5-5.1)
[2023-12-27 10:48] LABS: ALBUMIN 3.8 g/dl (3.4-5.0); CALCIUM 9.9 mg/dL (8.5-10.1); MAGNESIUM 2.2 mg/dL (1.8-2.4)
[2023-12-27 10:49] LABS: CREATININE 0.8 mg/dL (0.55-1.3)
[2023-12-27 10:54] LABS: TOT PROT 7.2 g/dl (6.4-8.2)
[2023-12-27] MEDS: FUROSEMIDE 20 MG TABLET (FP) PO SCH (13:23)
[2023-12-27] MEDS: guaiFENesin/CODEINE 10 ML UNIT-DOSE CUPS PO PRN (15:00)
[2023-12-27] MEDS: ACETAMINOPHEN 500 MG TABLET (FP) PO PRN (15:00)
[2023-12-27] MEDS: amLODIPine BESYLATE 5 MG TABLET (FP) PO SCH (15:00)
[2023-12-27] MEDS: MONTELUKAST NA 10 MG TABLET PO SCH (22:10)
[2023-12-27] MEDS: ACETAMINOPHEN 500 MG TABLET (FP) PO ONE (22:10)
[2023-12-27] MEDS: BUDESONIDE/FORMETEROL FUMARATE 160/4.5 mcg INHALER IH SCH (22:11)
[2023-12-27] MEDS: LATANOPROST 0.005% OPHTH SOLN 2.5ML BOTTLE OU SCH (22:18)
[2023-12-28] MEDS: methylPREDNISolone NA SUCC 40 MG/1 ML VIAL IVPUSH ONE (17:53)
[2023-12-28] MEDS: SENNOSIDES 8.8 MG/5 ML SYRUP PO SCH (19:01)
[2023-12-28] MEDS: POLYETHYLENE GLYCOL (HEALTHYLAX) 3350 17 GM PACKET PO SCH (19:02)
[2023-12-29] MEDS: predniSONE 20 MG TABLET (UD) PO SCH (09:34)
[2023-12-29 09:43] VITALS: BP 113/58; PULSE 65; RESP 18; TEMP 97.5
== END 2023-12-29 10:23 | disposition home or self-care (01) | DRG 202 ==
LOC: JER 15:46 → JERBED 21:21 → OBSVTOIN 12-27 01:04 → J7W 12-27 01:08
PROVIDERS: ADMIT Internal Medicine; ATTEND Internal Medicine
DX: J45.901 Unspecified asthma with (acute) exacerbation (principal); I50.32 Chronic diastolic (congestive) heart failure; Z68.41 Body mass index [BMI] 40.0-44.9, adult; J44.1 Chronic obstructive pulmonary disease with (acute) exacerbation; I11.0 Hypertensive heart disease with heart failure; Z86.16 Personal history of COVID-19; D57.3 Sickle-cell trait; E66.9 Obesity, unspecified; R00.1 Bradycardia, unspecified; R42 Dizziness and giddiness
CPT/HCPCS: 0241U-QW; 36415; 71045-TC-FY; 80053; 82803; 83735; 83880; 84100; 84484; 85025; 85027; 93005; 93010; 94640; 99285-25; G0378

== ENCOUNTER 2024-03-19 11:25 | Emergency (ER) | payer OTHER ==
[2024-03-19 12:02] VITALS: BP 159/82; PULSE 67; TEMP 98.5; BMI 44.1
[2024-03-19] MEDS ORDERED: methylPREDNISolone NA SUCC 125 MG/2 ML VIAL ONE (12:26)
[2024-03-19] MEDS ORDERED: ACETAMINOPHEN INJECTION 100 ML ONE (12:26)
[2024-03-19] MEDS ORDERED: ALBUTEROL SO4 2.5/IPRATROPIUM 0.5 INH SOL 3 ML VIAL.NEB. NEB ONE ×2 (12:26→12:53)
[2024-03-19] MEDS: methylPREDNISolone NA SUCC 125 MG/2 ML VIAL IVPUSH ONE (12:48)
[2024-03-19] MEDS: ACETAMINOPHEN 1000 MG/100 ML BAG IVPB ONE (12:49)
[2024-03-19] MEDS: MAGNESIUM SULFATE IN WATER 2 GM/50 ML IVPB IVPB ONE (12:49)
[2024-03-19] MEDS ORDERED: ACETAMINOPHEN 325 MG TABLET (FP) ONE ×2 (12:53→14:27)
[2024-03-19] MEDS ORDERED: predniSONE 20 MG TABLET (UD) ONE (12:55)
[2024-03-19] MEDS: predniSONE 20 MG TABLET (UD) PO ONE (13:01)
[2024-03-19] MEDS: ACETAMINOPHEN 325 MG TABLET (FP) PO ONE (13:01)
[2024-03-19] MEDS: ALBUTEROL SO4 2.5/IPRATROPIUM 0.5 INH SOL 3 ML VIAL.NEB. NEB SCH (13:01)
[2024-03-19 14:32] LABS: BASO % 0.8 % (0-2.0); EOS % 0.2 % (0-4.5); HEMATOCRIT 39.5 % (32.4-45.2); HEMOGLOBIN 12.8 GM/dL (10.7-15.3); LYMPH % 8.3 % (8-40); MCH 28.5 pg (25.7-33.7); MCHC 32.5 g/dl (32.0-36.0); MEAN CELL VOLUME 87.7 fl (80-96); MEAN PLT VOLUME 9.5 fl (7.5-11.1); MONO % 2.6 % (3.8-10.2); NEUT % 88.1 % (42.8-82.8); PLATELET COUNT 182 10^3/uL (134-434); RDW 12.8 % (11.6-15.6); WHITE BLOOD COUNT 3.8 K/mm3 (4.0-10.0)
[2024-03-19 14:50] LABS: ALBUMIN 3.7 g/dl (3.4-5.0); BLOOD UREA NITROGEN 14.1 mg/dL (7-18); CALCIUM 9.7 mg/dL (8.5-10.1)
[2024-03-19 14:53] LABS: CREATININE 0.8 mg/dL (0.55-1.3)
[2024-03-19 14:55] LABS: BILIRUBIN,TOTAL 0.4 mg/dL (0.2-1)
[2024-03-19] MEDS ORDERED: KETOROLAC TROMETHAMINE 15 MG/ML VIAL ONE (15:49)
[2024-03-19] MEDS: KETOROLAC TROMETHAMINE 15 MG/ML VIAL IVPUSH ONE (16:33)
== END 2024-03-19 17:27 | disposition home or self-care (01) ==
LOC: JER 11:25
PROC: 3E0333Z Introduction of Anti-inflammatory into Peripheral Vein, Percutaneous Approach (ICD-10-PCS; principal; 2024-03-19)
PROC: 3E0F7GC Introduction of Other Therapeutic Substance into Respiratory Tract, Via Natural or Artificial Opening (ICD-10-PCS; 2024-03-19)
DX: R05.9 Cough, unspecified (principal); J06.9 Acute upper respiratory infection, unspecified; R06.2 Wheezing; M79.10 Myalgia, unspecified site; Z20.822 Contact with and (suspected) exposure to COVID-19
CPT/HCPCS: 0241U-QW; 36415; 80053; 84484; 85025; 93005; 93010; 99284-25

== ENCOUNTER 2024-06-05 11:43 | Observation (INO) | payer OTHER ==
[2024-06-05] MEDS ORDERED: ALBUTEROL SO4 2.5/IPRATROPIUM 0.5 INH SOL 3 ML VIAL.NEB. NEB ONE (12:59)
[2024-06-05] MEDS: ALBUTEROL SO4 2.5/IPRATROPIUM 0.5 INH SOL 3 ML VIAL.NEB. NEB ONE (13:07)
[2024-06-05] MEDS ORDERED: methylPREDNISolone NA SUCC 125 MG/2 ML VIAL ONE (13:10)
[2024-06-05] MEDS: methylPREDNISolone NA SUCC 125 MG/2 ML VIAL IVPUSH ONE (13:43)
[2024-06-05 13:52] LABS: ABSOLUTE IMMATURE GRANULOCYTES 0.04 x10^3/uL (0.0-0.031); BASOPHILS # 0.04 x10^3/uL (0.01-0.08); EOSINOPHIL % 1.8 % (0.7-5.8); HEMOGLOBIN 13.3 g/dL (11.2-15.7); MCHC 31.7 g/dl (32.2-35.5); MEAN CELL VOLUME 87.5 fl (79.4-94.8); MEAN PLT VOLUME 11.3 fl (9.4-12.3); MONOCYTE # 0.57 x10^3/uL (0.24-0.86); MONOCYTE % 10.4 % (4.7-12.5); PLATELET COUNT # 236 x10^3/uL (182-369)
[2024-06-05 14:14] LABS: ALBUMIN 3.7 g/dl (3.4-5.0); CALCIUM 9.2 mg/dL (8.5-10.1)
[2024-06-05 14:15] LABS: BLOOD UREA NITROGEN 8.1 mg/dL (7-18)
[2024-06-05 14:18] LABS: CREATININE 0.7 mg/dL (0.55-1.3)
[2024-06-05 14:19] LABS: BILIRUBIN,TOTAL 0.8 mg/dL (0.2-1); TOT PROT 6.9 g/dl (6.4-8.2)
[2024-06-05] MEDS ORDERED: ALBUTEROL SO4 0.083% IH SOL 2.5 MG/3 ML VIAL.NEB. NEB ONE (20:14)
[2024-06-05] MEDS ORDERED: AZITHROMYCIN 250 MG TABLET ONE (20:14)
[2024-06-05] MEDS: AZITHROMYCIN 250 MG TABLET PO ONE (20:37)
[2024-06-05] MEDS: ALBUTEROL SO4 0.083% IH SOL 2.5 MG/3 ML VIAL.NEB. NEB SCH (20:37)
[2024-06-05] MEDS ORDERED: ENOXAPARIN NA (PORCINE) 40 MG/0.4 ML DISP.SYRIN SQ ONE (21:57)
[2024-06-05] MEDS: ENOXAPARIN NA (PORCINE) 40 MG/0.4 ML DISP.SYRIN SQ SCH (22:05)
[2024-06-05] MEDS ORDERED: BENZONATATE 200 MG CAPSULE PO ONE (23:54)
[2024-06-06] MEDS: BENZONATATE 200 MG CAPSULE PO PRN
[2024-06-06] MEDS: ACETAMINOPHEN 1000 MG/100 ML BAG IVPB ONE (01:44)
[2024-06-06] MEDS: BENZOCAINE/MENTH/CETYLPYRD CL 1 EACH LOZENGE MM PRN (01:53)
[2024-06-06 02:02] VITALS: BMI 44.6
[2024-06-06 06:13] VITALS: RESP 16
[2024-06-06] MEDS: FAMOTIDINE 20 MG TABLET PO SCH (10:12)
[2024-06-06] MEDS: AZITHROMYCIN 250 MG TABLET PO SCH (10:12)
[2024-06-06] MEDS: methylPREDNISolone NA SUCC 40 MG/1 ML VIAL IVPUSH SCH (10:13)
[2024-06-06 13:19] VITALS: BP 129/67; PULSE 73; TEMP 98.4
== END 2024-06-06 15:01 | disposition home or self-care (01) ==
LOC: JER 11:43 → JERBED 18:53 → J7W 06-06 01:11
PROVIDERS: ADMIT Internal Medicine
PROC: 3E033NZ Introduction of Analgesics, Hypnotics, Sedatives into Peripheral Vein, Percutaneous Approach (ICD-10-PCS; principal; 2024-06-05)
PROC: 3E0F7GC Introduction of Other Therapeutic Substance into Respiratory Tract, Via Natural or Artificial Opening (ICD-10-PCS; 2024-06-05)
PROC: 3E023GC Introduction of Other Therapeutic Substance into Muscle, Percutaneous Approach (ICD-10-PCS; 2024-06-05)
PROC: 3E033GC Introduction of Other Therapeutic Substance into Peripheral Vein, Percutaneous Approach (ICD-10-PCS; 2024-06-05)
DX: J45.901 Unspecified asthma with (acute) exacerbation (principal); R81 Glycosuria; I10 Essential (primary) hypertension; N28.1 Cyst of kidney, acquired; E66.01 Morbid (severe) obesity due to excess calories; Z96.651 Presence of right artificial knee joint; Z87.440 Personal history of urinary (tract) infections; Z88.0 Allergy status to penicillin; Z88.8 Allergy status to other drugs, medicaments and biological substances
CPT/HCPCS: 0241U-QW; 36415; 71046-TC-FY; 71275-TC; 80053; 82962; 83880; 84484; 85025; 85379; 93005; 93010; 94640; 96372; 96374; 96375; 96376; 99285-25; G0378; J0131; Q9967

== ENCOUNTER 2024-08-25 13:14 | Inpatient (IN) | payer OTHER ==
[2024-08-25] MEDS ORDERED: methylPREDNISolone NA SUCC 125 MG/2 ML VIAL ONE (13:45)
[2024-08-25] MEDS ORDERED: MAGNESIUM SULFATE IN WATER 2 GM/50 ML IVPB IVPB ONE (13:46)
[2024-08-25] MEDS: ALBUTEROL SO4 2.5/IPRATROPIUM 0.5 INH SOL 3 ML VIAL.NEB. NEB SCH ×2 (13:48→20:16)
[2024-08-25] MEDS: methylPREDNISolone NA SUCC 125 MG/2 ML VIAL IVPUSH ONE (14:07)
[2024-08-25 14:14] LABS: ABSOLUTE IMMATURE GRANULOCYTES 0.01 x10^3/uL (0.0-0.031); BASOPHILS # 0.02 x10^3/uL (0.01-0.08); EOSINOPHIL % 2.7 % (0.7-5.8); EOSINOPHILS # 0.12 x10^3/uL (0.04-0.36); HEMATOCRIT 37.7 % (34.1-44.9); HEMOGLOBIN 12.3 g/dL (11.2-15.7); MCHC 32.6 g/dl (32.2-35.5); MEAN CELL VOLUME 86.9 fl (79.4-94.8); MONOCYTE # 0.54 x10^3/uL (0.24-0.86); MONOCYTE % 12.1 % (4.7-12.5); PLATELET COUNT 181 x10^3/uL (182-369); RDW 12.2 % (12.4-16.4)
[2024-08-25] MEDS: MAGNESIUM SULF 50% (8.12 MEQ/2 ML-1 GM VIAL) IVPB ONE (14:14)
[2024-08-25 14:21] LABS: INR 1.1 (0.83-1.09); PROTHROMBIN TIME (PATIENT) 12.1 SEC (9.7-13.0)
[2024-08-25 14:24] LABS: ACTIVATED PTT 29.3 SECONDS (25.2-36.5)
[2024-08-25 14:35] LABS: CALCIUM 9.7 mg/dL (8.5-10.1)
[2024-08-25 14:36] LABS: ALBUMIN 3.6 g/dl (3.4-5.0); BLOOD UREA NITROGEN 10.4 mg/dL (7-18); MAGNESIUM 1.9 mg/dL (1.8-2.4)
[2024-08-25 14:39] LABS: CREATININE 0.7 mg/dL (0.55-1.3)
[2024-08-25 14:40] LABS: BILIRUBIN,TOTAL 0.7 mg/dL (0.2-1); TOT PROT 6.7 g/dl (6.4-8.2)
[2024-08-25 14:44] LABS: N-TERMINAL BNP 88.1 pg/ml (5-125)
[2024-08-25 14:47] LABS: VENOUS BASE EXCESS -1.6 mmol/L (-2-2); VENOUS O2 SATURATION 40.2 % (70-80); VENOUS PCO2 52.3 mmHg (38-52); VENOUS PH 7.311 (7.310-7.410)
[2024-08-25] MEDS ORDERED: AZITHROMYCIN IVPB 500 MG/250 ML BAG IVPB ONE (15:06)
[2024-08-25] MEDS: AZITHROMYCIN IVPB 500 MG in DEXTROSE 5%-WATER - 250 ML IVPB ONE (15:23)
[2024-08-25] MEDS ORDERED: BENZONATATE 200 MG CAPSULE PO ONE (16:18)
[2024-08-25] MEDS: BENZONATATE 200 MG CAPSULE PO ONE ×2 (16:26)
[2024-08-25] MEDS ORDERED: ALBUTEROL SO4 0.083% IH SOL 2.5 MG/3 ML VIAL.NEB. NEB ONE (17:32)
[2024-08-25] MEDS: ALBUTEROL SO4 0.083% IH SOL 2.5 MG/3 ML VIAL.NEB. NEB ONE (17:33)
[2024-08-25] MEDS ORDERED: ALBUTEROL SO4 2.5/IPRATROPIUM 0.5 INH SOL 3 ML VIAL.NEB. NEB ONE (20:11)
[2024-08-25] MEDS ORDERED: ALBUTEROL SO4 HFA INHALER IH PRN (23:13)
[2024-08-25] MEDS: LIDOCAINE PATCH REMOVAL MC SCH (23:33)
[2024-08-26] MEDS ORDERED: methylPREDNISolone NA SUCC 40 MG/1 ML VIAL ONE (00:21)
[2024-08-26] MEDS: methylPREDNISolone NA SUCC 40 MG/1 ML VIAL IVPUSH SCH ×2 (00:42→14:25)
[2024-08-26] MEDS ORDERED: ALBUTEROL SO4 2.5/IPRATROPIUM 0.5 INH SOL 3 ML VIAL.NEB. NEB ONE (05:09)
[2024-08-26] MEDS: ALBUTEROL SO4 2.5/IPRATROPIUM 0.5 INH SOL 3 ML VIAL.NEB. NEB PRN (05:11)
[2024-08-26 06:56] LABS: POTASSIUM 4.4 mmol/L (3.5-5.1)
[2024-08-26 06:58] LABS: BLOOD UREA NITROGEN 12.1 mg/dL (7-18)
[2024-08-26 06:59] LABS: ALBUMIN 3.8 g/dl (3.4-5.0); MAGNESIUM 2.3 mg/dL (1.8-2.4)
[2024-08-26 07:02] LABS: CREATININE 0.8 mg/dL (0.55-1.3); PHOSPHOROUS 3.2 mg/dL (2.5-4.9)
[2024-08-26 07:03] LABS: BILIRUBIN,TOTAL 0.9 mg/dL (0.2-1); TOT PROT 7.2 g/dl (6.4-8.2)
[2024-08-26 07:05] LABS: ABSOLUTE IMMATURE GRANULOCYTES 0.08 x10^3/uL (0.0-0.031); BASOPHILS # 0.01 x10^3/uL (0.01-0.08); HEMATOCRIT 37.9 % (34.1-44.9); MCHC 31.7 g/dl (32.2-35.5); MEAN CELL VOLUME 86.9 fl (79.4-94.8); MEAN PLT VOLUME 11.8 fl (9.4-12.3); MONOCYTE # 0.08 x10^3/uL (0.24-0.86); PLATELET COUNT 173 x10^3/uL (182-369); RDW 12.1 % (12.4-16.4)
[2024-08-26] MEDS ORDERED: ACETAMINOPHEN INJECTION 100 ML ONE (08:45)
[2024-08-26] MEDS: ACETAMINOPHEN 1000 MG/100 ML BAG IVPB PRN (08:52)
[2024-08-26] MEDS ORDERED: guaiFENesin/D-METHORPHAN HB 10 ML UNIT-DOSE CUPS ONE (09:03)
[2024-08-26] MEDS ORDERED: FAMOTIDINE 20 MG TABLET ONE (09:03)
[2024-08-26] MEDS ORDERED: amLODIPine BESYLATE 5 MG TABLET (FP) ONE (09:03)
[2024-08-26] MEDS ORDERED: ENOXAPARIN NA (PORCINE) 40 MG/0.4 ML DISP.SYRIN SQ ONE (09:04)
[2024-08-26] MEDS ORDERED: LIDOCAINE 5% TOPICAL PATCH ONE (09:04)
[2024-08-26] MEDS: FAMOTIDINE 20 MG TABLET PO SCH (09:11)
[2024-08-26] MEDS: ENOXAPARIN NA (PORCINE) 40 MG/0.4 ML DISP.SYRIN SQ SCH (09:11)
[2024-08-26] MEDS: guaiFENesin/D-METHORPHAN HB 10 ML UNIT-DOSE CUPS PO PRN (09:11)
[2024-08-26] MEDS: amLODIPine BESYLATE 5 MG TABLET (FP) PO SCH (09:11)
[2024-08-26] MEDS: LIDOCAINE 5% TOPICAL PATCH TP SCH (09:12)
[2024-08-26] MEDS ORDERED: methylPREDNISolone NA SUCC 40 MG/1 ML VIAL IVPUSH SCH (10:00)
[2024-08-26] MEDS ORDERED: ALBUTEROL SO4 0.083% IH SOL 2.5 MG/3 ML VIAL.NEB. NEB PRN (14:17)
[2024-08-26] MEDS: KETOROLAC TROMETHAMINE 15 MG/ML VIAL IVPUSH PRN (14:25)
[2024-08-26 15:31] VITALS: BMI 45.6
[2024-08-26] MEDS: BUDESONIDE/FORMETEROL FUMARATE 160/4.5 mcg INHALER IH SCH ×2 (15:47→17:40)
[2024-08-26] MEDS: ALBUTEROL SO4 2.5/IPRATROPIUM 0.5 INH SOL 3 ML VIAL.NEB. NEB SCH (20:25)
[2024-08-26] MEDS: MONTELUKAST NA 10 MG TABLET PO SCH (21:19)
[2024-08-27 08:04] LABS: HEMOGLOBIN 11.6 g/dL (11.2-15.7); MCHC 32.2 g/dl (32.2-35.5); MEAN CELL VOLUME 86.7 fl (79.4-94.8); MEAN PLT VOLUME 11.7 fl (9.4-12.3); PLATELET COUNT 202 x10^3/uL (182-369); RDW 12.3 % (12.4-16.4)
[2024-08-27 08:24] LABS: POTASSIUM 4.4 mmol/L (3.5-5.1)
[2024-08-27 08:28] LABS: ALBUMIN 3.6 g/dl (3.4-5.0); BLOOD UREA NITROGEN 16.5 mg/dL (7-18); MAGNESIUM 2.4 mg/dL (1.8-2.4)
[2024-08-27 08:31] LABS: CREATININE 0.8 mg/dL (0.55-1.3)
[2024-08-27 08:32] LABS: BILIRUBIN,TOTAL 0.7 mg/dL (0.2-1); TOT PROT 6.9 g/dl (6.4-8.2)
[2024-08-27] MEDS: PANTOPRAZOLE 40 MG TABLET PO SCH (09:23)
[2024-08-27 15:42] VITALS: RESP 18
[2024-08-28 07:48] LABS: HEMATOCRIT 36.7 % (34.1-44.9); MCHC 32.7 g/dl (32.2-35.5); MEAN CELL VOLUME 85.5 fl (79.4-94.8); MEAN PLT VOLUME 12.1 fl (9.4-12.3); PLATELET COUNT 195 x10^3/uL (182-369); RDW 12.2 % (12.4-16.4)
[2024-08-28 08:06] LABS: POTASSIUM 4.4 mmol/L (3.5-5.1)
[2024-08-28 08:12] LABS: BILIRUBIN,TOTAL 0.6 mg/dL (0.2-1); TOT PROT 6.5 g/dl (6.4-8.2)
[2024-08-28 08:35] LABS: CALCIUM 9.8 mg/dL (8.5-10.1)
[2024-08-28 08:36] LABS: ALBUMIN 3.4 g/dl (3.4-5.0)
[2024-08-28 08:40] LABS: CREATININE 0.7 mg/dL (0.55-1.3)
[2024-08-28 08:52] LABS: MAGNESIUM 2.4 mg/dL (1.8-2.4)
[2024-08-28] MEDS: ISOSORBIDE MONONITRATE 30 MG TAB.SR.24H (FP) PO SCH (10:38)
[2024-08-29 06:07] VITALS: BP 145/70; PULSE 54; TEMP 97.7
[2024-08-29 07:35] LABS: HEMATOCRIT 38.4 % (34.1-44.9); HEMOGLOBIN 12.4 g/dL (11.2-15.7); MCHC 32.3 g/dl (32.2-35.5); MEAN CELL VOLUME 86.3 fl (79.4-94.8); MEAN PLT VOLUME 11.9 fl (9.4-12.3); PLATELET COUNT 194 x10^3/uL (182-369); RDW 12.2 % (12.4-16.4)
[2024-08-29 08:01] LABS: POTASSIUM 4.1 mmol/L (3.5-5.1)
[2024-08-29 08:14] LABS: ALBUMIN 3.6 g/dl (3.4-5.0)
[2024-08-29 08:15] LABS: BLOOD UREA NITROGEN 17.2 mg/dL (7-18); CALCIUM 9.9 mg/dL (8.5-10.1)
[2024-08-29 08:17] LABS: CREATININE 0.9 mg/dL (0.55-1.3)
[2024-08-29 08:18] LABS: BILIRUBIN,TOTAL 0.7 mg/dL (0.2-1)
[2024-08-29] MEDS: predniSONE 20 MG TABLET (UD) PO SCH (12:22)
== END 2024-08-29 14:13 | disposition home or self-care (01) | DRG 202 ==
LOC: JER 13:14 → JERBED 20:57 → J4W 08-26 11:17 → OBSVTOIN 08-27 14:15
PROVIDERS: ADMIT Internal Medicine; ATTEND Internal Medicine
DX: J45.41 Moderate persistent asthma with (acute) exacerbation (principal); I50.32 Chronic diastolic (congestive) heart failure; Z68.41 Body mass index [BMI] 40.0-44.9, adult; I11.0 Hypertensive heart disease with heart failure; E66.01 Morbid (severe) obesity due to excess calories; M48.061 Spinal stenosis, lumbar region without neurogenic claudication; N28.1 Cyst of kidney, acquired; I25.10 Atherosclerotic heart disease of native coronary artery without angina pectoris; R07.9 Chest pain, unspecified; R42 Dizziness and giddiness; D57.3 Sickle-cell trait
CPT/HCPCS: 0241U-QW; 36415; 71045-TC-FY; 71275-TC; 76775-TC; 80053; 82550; 82803; 83735; 83880; 84100; 84484; 85025; 85027; 85610; 85730; 86850; 86900; 86901; 93005; 93010; 94640; 97116-GP; 97162-GP; 99285-25; G0378; Q9967